=== PATIENT | male | born 1955 | race Caucasian/White ===

== ENCOUNTER 2021-03-02 11:46 | Day surgery (SDC) | payer MEDICARE, BC ==
[2021-02-26 12:36] LABS: BASOPHILS % (AUTO) 0.5 % (0-1); EOSINOPHILS # (AUTO) 0.1 X10'3 (0-0.9); EOSINOPHILS % (AUTO) 1.7 % (0-6); HEMATOCRIT 48.2 % (42.0-52.0); HEMOGLOBIN 16.5 g/dl (14.0-17.9); LYMPHOCYTES # (AUTO) 0.6 X10'3 (1.1-4.8); LYMPHOCYTES % (AUTO) 11.6 % (21-51); MEAN CORPUSCULAR HEMOGLOBIN 34.6 PG (27.0-31.0); MEAN CORPUSCULAR HGB CONC 34.2 g/dL (33.0-36.5); MEAN CORPUSCULAR VOLUME 101.2 FL (78-98); MEAN PLATELET VOLUME 8.3 FL (7.4-10.4); MONOCYTES # (AUTO) 0.5 X10'3 (0-0.9); MONOCYTES % (AUTO) 10.2 % (2-12); NEUTROPHILS # (AUTO) 3.9 X10'3 (1.8-7.7); PLATELET COUNT 150 X10'3 (140-440); RED BLOOD COUNT 4.77 X10'6 (4.70-6.10); RED CELL DISTRIBUTION WIDTH 13.5 % (11.5-14.5); WHITE BLOOD COUNT 5.2 X10'3 (4.5-11.0)
[2021-02-26 12:48] LABS: PARTIAL THROMBOPLASTIN TIME 30 SECONDS (22-32)
[2021-02-26 12:58] LABS: ALBUMIN 3.4 G/DL (3.4-5.0); ANION GAP 10 (8-16); BLOOD UREA NITROGEN 24 MG/DL (7-18); BUN/CREATININE RATIO 20.3 (5.4-32.0); CALCIUM 8.8 MG/DL (8.5-10.1); CHLORIDE 109 MMOL/L (99-107); CREATININE 1.18 MG/DL (0.60-1.10); GLUCOSE 98 MG/DL (70-104); SODIUM 142 MMOL/L (135-145); TOTAL CARBON DIOXIDE 22.8 MMOL/L (24-32); eGFR 62 ML/MIN
[2021-03-02] VITALS (10 sets, daily range): BP systolic 101–143; BP diastolic 53–77
[~2021-03-02] VITALS: Ht 175.3 cm; Wt 70.9 kg
[2021-03-02] MEDS ORDERED: APIX5TAB3 PO (12:10)
[2021-03-02] MEDS ORDERED: AMLO10TA4 PO (12:10)
[2021-03-02] MEDS ORDERED: fentaNYL/PF 50MCG/1 ML 2ML syringe IV ONE (12:15)
[2021-03-02] MEDS ORDERED: MIDAZolam 1mg/ml 10ml vial IV ONE (12:15)
[2021-03-02] MEDS ORDERED: normal saline 1000ml 1,000 ML IV SCH (12:15)
== END 2021-03-02 14:45 | disposition home or self-care (01) ==
LOC: SSTAY O 11:46
PROVIDERS: ATTEND Internal Medicine Interventional Cardiology
DX: I48.91 Unspecified atrial fibrillation (principal); I10 Essential (primary) hypertension; E78.5 Hyperlipidemia, unspecified; Z86.73 Personal history of transient ischemic attack (TIA), and cerebral infarction without residual deficits
CPT/HCPCS: 36415; 80048; 85025; 85610; 85730; 92960; 93005; 94760; 94799; J2250; J3010; J7030

== ENCOUNTER 2022-01-11 09:09 | Day surgery (SDC) | payer MEDICARE, BC, MEDICAID ==
[~2022-01-11] VITALS: Ht 175.3 cm; Wt 72.7 kg
[~2022-01-11 09:09] MED LIST: AMLO10TA4 PO; APIX5TAB3 PO; MIDAZolam 1 MG/ML 5ML VIAL ONE; diphenhydrAMINE 50 mg/ml inj ONE; fentaNYL/PF 50MCG/1 ML 2ML syringe ONE
[2022-01-11 09:24] VITALS: BP 140/74
[2022-01-11 10:32] VITALS: BP 114/72
[2022-01-11 10:42] VITALS: BP 114/55
[2022-01-11 10:52] VITALS: BP 131/73
[2022-01-11 10:58] VITALS: BP 126/86
== END 2022-01-11 11:05 | disposition home or self-care (01) ==
LOC: GI LAB 09:09
PROVIDERS: ATTEND Internal Medicine Gastroenterology
DX: Z12.11 Encounter for screening for malignant neoplasm of colon (principal)
CPT/HCPCS: G0121; G0500; J2250; J3010; J7030; Z7512; 45378; 99152; A4620; J1200

== ENCOUNTER 2022-04-07 15:00 | Emergency (ER) | payer MEDICARE, BC, MEDICAID ==
[~2022-04-07] VITALS: Ht 175.3 cm; Wt 71.4 kg
[~2022-04-07 15:00] MED LIST changes: -APIX5TAB3 PO; -MIDAZolam 1 MG/ML 5ML VIAL ONE; -diphenhydrAMINE 50 mg/ml inj ONE; -fentaNYL/PF 50MCG/1 ML 2ML syringe ONE
[2022-04-07 15:02] VITALS: BP 125/87
[2022-04-07] MEDS ORDERED: TRAM50TA2 PO (16:42)
[2022-04-07] MEDS ORDERED: LIDO700A32 TOP (16:42)
--- NOTE | 2022-04-07 17:06 | NUR ---
In[employer] teaching given and demonstrated back
== END 2022-04-07 17:07 | disposition home or self-care (01) ==
LOC: ER 15:00
DX: R07.81 Pleurodynia (principal)
CPT/HCPCS: 71101; 99283